=== PATIENT | female | born 1960 | race Caucasian/White ===

== ENCOUNTER 2017-09-22 08:39 | Day surgery (SDC) | payer OTHER ==
[2017-09-22 09:29] VITALS: PULSE 75
[2017-09-22] MEDS ORDERED: LR 1,000 ML IV ONE (09:29)
[2017-09-22] MEDS ORDERED: PROPOFOL/EMULSION 500 MG/50 ML BOTTLE IV ONE (09:40)
[2017-09-22] MEDS ORDERED: LIDOCAINE 2% 5 ML SDV ONE (09:43)
[2017-09-22] MEDS ORDERED: PROPOFOL 200 MG/20 ML VIAL ONE (09:43)
[2017-09-22] MEDS ORDERED: ONDANSETRON 4 MG/2 ML VIAL IVP PRN (09:53)
[2017-09-22] MEDS ORDERED: fentaNYL 100 MCG/2 ML INJ IVP PRN (09:53)
[2017-09-22] MEDS ORDERED: NALOXONE HCL 0.4 MG/ML INJ IVP PRN (09:53)
[2017-09-22] MEDS ORDERED: DEXAMETHASONE 4 MG/ML VIAL IVP PRN (09:53)
[2017-09-22] MEDS ORDERED: ALBUTEROL 3 ML DEYVIAL IH PRN (09:53)
--- NOTE | 2017-09-22 09:55 | PDANEPAE ---
ANE History of Present Illness Colonoscopy ANE Past Medical History - Cardiovascular History Hx Hypertension: No Hx Arrhythmias: No Hx Chest Pain: No Hx Coronary Artery / Peripheral Vascular Disease: No Hx CHF / Valvular Disease: No Hx Palpitations: No - Pulmonary History Hx COPD: No Hx Asthma/Reactive Airway Disease: Yes Hx Recent Upper Respiratory Infection: No Hx Oxygen in Use at Home: No Hx Sleep Apnea: No Sleep Apnea Screening Result - Last Documented: Positive Pulmonary History Comment: inhaler for early copd - Neurologic History Hx Cerebrovascular Accident: No Hx Seizures: No Hx Dementia: No - Endocrine History Hx Diabetes: No - Renal History Hx Renal Disorders: No - Liver History Hx Hepatic Disorders: No - Neurological & Psychiatric Hx Hx Neurological and Psychiatric Disorders: No - Cancer History Hx Cancer: No - Congenital Disorder History Hx Congenital Disorders: No - GI History Hx Gastrointestinal Disorders: No Gastrointestinal History Comment: acid reflux,heartburn - Other Health History Other Health History: neg - Chronic Pain History Chronic Pain: No - Surgical History Prior Surgeries: tubal ligation ANE Review of Systems Review of Systems: - Exercise capacity METS (RN): 4 METS ANE Patient History - Allergies Allergies/Adverse Reactions: latex Allergy (Verified 09/21/17 10:41) Rash - Home Medications Home Medications: Albuterol Hfa Anes Only 09/21/17 [Last Taken 09/22/17 07:30] Herbals/Supplements -Info Only 09/21/17 [Last Taken 09/20/17] Omeprazole 09/21/17 [Last Taken 09/20/17] Tylenol PM (*) 09/21/17 [Last Taken 09/20/17] - NPO status NPO Since - Liquids (Date): 09/21/17 NPO Since - Liquids (Time): 22:00 NPO Since - Solids (Date): 09/21/17 NPO Since - Solids (Time): 08:00 - Smoking Hx Smoking Status: Former smoker - Family Anes Hx Family Hx Anesthesia Complications: neg ANE Labs/Vital Signs - Vital Signs Blood Pressure: 145/87 Heart Rate: 75 Respiratory Rate: 18 O2 Sat (%): 91 Height: 163.83 cm Weight: 122.924 kg ANE Physical Exam - Airway Neck exam: FROM Mallampati Score: Class 2 - Pulmonary Pulmonary: clear to auscultation - Cardiovascular Cardiovascular: regular rate and rhythym - ASA Status ASA Status: II ANE Anesthesia Plan Anesthesia Plan: GA with mask Total IV Anesthesia: Yes
[2017-09-22] MEDS ORDERED: INDOMETHACIN 50 MG SUPP PR PRN (10:09)
--- NOTE | 2017-09-22 10:09 | PDGENHP ---
History & Physical Chief Complaint: fam hx CRC History of Present Illness: 57 year old female with a family hx of CRC (mom 50's ) presents for surveillance colonoscopy. Last colonoscopy in 2009 Pertinent Past, Social, Family History: PMHx: COPD. FaMHx: CRC Relevant Physical Exam: HEENT: anicteric. CV: RRR +s1s2. Lungs: CTAB. Abd: soft, Nt, + BS Cardiorespiratory Assessment: ASA 2
[2017-09-22] MEDS ORDERED: NS 500 ML IV SCH (10:15)
--- NOTE | 2017-09-22 10:18 | GIREPORT ---
[facility] Surgical Services - Endoscopy Department Patient Name: Tonia Solano Procedure Date: 09/22/2017 9:28 AM Patient Type: Outpatient Attending / ER Physician: Rowdy Gates MD Procedure: Colonoscopy Indications: Family history of colon cancer in a first-degree relative Patient Profile: 57 year old female with a family history of CRC presents for surveillan ce colonoscopy. Providers: Rowdy Gates MD Medicines: Monitored Anesthesia Care Complications: No immediate complications. Estimated blood loss: Minimal. Description of Procedure: After obtaining informed consent, the scope was passed under direct vis ion. Throughout the procedure, the patient's blood pressure, pulse, and oxyg en saturations were monitored continuously. The Colonoscope with irrigatio n channel was introduced through the anus and advanced to the cecum, identified by appendiceal orifice and ileocecal valve. The colonoscopy was performed without difficulty. The patient tolerated the procedure well. The quality of the bowel preparation was good. The ileocecal valve, appendi ceal orifice, and rectum were photographed. Findings: The perianal and digital rectal examinations were normal. Pertinent negatives include no palpable rectal lesions. A few small-mouthed diverticula were found in the sigmoid colon. Two sessile polyps were found in the rectum. The polyps were 2 to 3 mm in size. These polyps were removed with a cold biopsy forceps. Resection a nd retrieval were complete. Estimated Blood Loss: Estimated blood loss was minimal. Post Op Diagnosis: - Diverticulosis in the sigmoid colon. - Two 2 to 3 mm polyps in the rectum, removed with a cold biopsy forcep s. Resected and retrieved. Recommendation: - Discharge patient to home (with escort). - Resume previous diet. - Continue present medications. - Repeat colonoscopy in 5 years for surveillance. - Use fiber, for example Citrucel, Fibercon, Konsyl or Metamucil. - Await pathology results. - Thank you for allowing me to participate in the care of your patient. Attending Participation: I personally performed the entire procedure. Rowdy Gates MD Rowdy Gates MD 09/22/2017 10:18:23 AM This report has been signed electronicallyRowdy Gates MD Number of Addenda: 0 Note Initiated On: 09/22/2017 9:28 AM Total Procedure Duration Time 0 hours 15 minutes 8 seconds [email or web address]
--- NOTE | 2017-09-22 10:21 | POSTANESTH ---
Post Anesthetic Evaluation Cardiovascular Status: Normal, Stable Respiratory Status: Normal, Stable Level of Consciousness/Mental Status: Mildly Sleepy, Arousable Pain Control: Adequate, Prn Tx Ordered Nausea/Vomiting Control: Adequate, Prn Tx Ordered Complications Possibly Related to Anesthesia: None Noted
[2017-09-22 10:26] VITALS: RESP 16
[2017-09-22 11:00] VITALS: TEMP 98.6
[2017-09-22 11:44] VITALS: BP 116/76; O2SAT 93
== END 2017-09-22 11:42 | disposition home or self-care (01) ==
LOC: FSGY 08:39
PROVIDERS: ATTEND Internal Medicine Gastroenterology
PROC: 0DBP4ZX Excision of Rectum, Percutaneous Endoscopic Approach, Diagnostic (ICD-10-PCS; principal; 2017-09-22 09:45)
DX: K63.5 Polyp of colon (principal); Z80.0 Family history of malignant neoplasm of digestive organs
CPT/HCPCS: J2704